=== PATIENT | female | born 1940 | race Caucasian/White ===

== ENCOUNTER → 2017-05-13 | Day surgery (SDC) | payer OTHER ==
[~2017-05-13] VITALS: Ht 157.5 cm; Wt 102.5 kg
[~2017-05-13] MED LIST: AMARYL2 MG PO; AMBIEN 5 MG TABL5 MG PO; ASPIR 8181 MG PO; ATORVASTATIN CA40 MG PO; CARDIZEM CD240 MG PO; CARDURA4 MG PO; CARTIA XT240 M1 PO; CARVEDILOL25 MG PO; CELEBREX 200 M200 M1 PO; CLONAZEPAM 0.50.5 M1 PO; COUMADIN 3 MG TA3 M1 PO; COUMADIN6 MG PO; ENOXAPARIN100 MG/11 SUBQ; FISH OIL 1,001000 M2 PO; GLIMEPIRIDE PO; HYDRALAZINE 5050 MG PO; LASIX 40 MG TAB40 M2 PO; LOSARTAN POTAS100 MG PO; METFORMIN HCL850 MG PO; METFORMIN PO; MULTI VITAMIN1 EACH PO; NEURONTIN 300300 M1 PO; OMEPRAZOLE 20 M20 M1 PO; PROAIR HFA8.5 GM INH; REQUIP0.5 MG PO; SINGULAIR 10 MG10 M1 PO; SPIRIVA INH; SYMBICORT160 MCG/4. PO; TYLENOL PM EX-1 EACH PO
[2017-05-13 12:13] LABS: CALCIUM 9.2 mg/dL (8.5-10.1); CREATININE 1.1 mg/dL (0.6-1.0)
[2017-05-13 12:23] LABS: INR 1.1; PROTIME 11.5 Seconds (9.3-11.4)
== END ==
LOC: OR 01:35 → TBA 01:35 → OR 01:36
PROVIDERS: Ophthalmology
DX: J43.9 Emphysema, unspecified (principal); J44.9 Chronic obstructive pulmonary disease, unspecified; Z53.9 Procedure and treatment not carried out, unspecified reason

== ENCOUNTER 2017-05-23 05:29 | Day surgery (SDC) | payer OTHER ==
[~2017-05-23] VITALS: Ht 157.5 cm; Wt 103.9 kg
--- NOTE | ~2017-05-23 | O ---
[facility] [place] [address] OPERATIVE REPORT Name: FELICITY MCGREGOR Room #: DEP [facility]#: [id number] Admission: 05/23/17 Attend Phys: Nahum Slater MD Discharge: 05/23/17 Date of : 42 Report #: [id number] THIS REPORT FOR: //name// CC: ELADIO Slater SURGEON: Nahum Slater MD [employer] EMPLOYEE: None. PREOPERATIVE DIAGNOSIS: Bilateral upper lid dermatochalasia with superior visual field defect. POSTOPERATIVE DIAGNOSIS: Bilateral upper lid dermatochalasia with superior visual field defect. OPERATION PERFORMED: Bilateral upper lid functional blepharoplasty. ANESTHESIA: Local with IV sedation. COMPLICATIONS: None. INDICATIONS FOR SURGERY: This patient has acquired upper lid dermatochalasia with superior visual field loss both eyes because of excessive upper lid tissues to include skin and fat. Visual field testing demonstrates dense superior visual defects. Retesting with the upper lid elevated shows an improvement in visual field loss of over 30% and in excess of 12 degrees. The current procedures are undertaken in order to improve the patient's visual function. Informed consent was obtained to include but not limited to the loss of vision, bleeding, infection, scarring, failure to improve the problem and need for further surgery. DESCRIPTION OF OPERATION: The patient was taken to the operating room, where 2% Xylocaine with epinephrine mixed with equal parts of 0.75% Marcaine with Wydase was administered transcutaneously to each upper lid. The patient was then prepped and draped in the usual sterile fashion and a skin-marking pen was then utilized to outline an upper lid crease that was symmetrical on each side. Graefe forceps were then used to quantitate the redundant upper lid skin and it was similarly outlined. The incisions were then made with Monica scissors and a skin-muscle flap removed from each side with high-temp cautery. Hemostasis was achieved with the monopolar cautery as it was throughout the case. The orbital septum was then identified and the central and medial fat pads were inspected. The redundant soft tissue was then sculpted with the monopolar cautery. The upper lid crease was then reformed with tightening of the [facility] [address] [place] [address] OPERATIVE REPORT Name: FELICITY MCGREGOR Angie Room #: DEP [facility].#: [id number] Admission: 05/23/17 Attend Phys: Nahum Slater MD Discharge: 05/23/17 Date of : 42 Report #: [id number] pretarsal orbicularis muscle. The upper lid crease was then further reformed with multiple interrupted 6-0 chromic sutures. The skin was then closed with a running 6-0 plain gut suture. The wound was then cleaned and dressed with ophthalmic antibiotic ointment and a nonstick dressing. The patient was transported to the recovery area, where cold compresses were applied, having tolerated the procedure well with no anesthetic or operative complications being noted. By: [id number] Nahum Slater MD /henrry
[2017-05-23 07:28] LABS: PROTIME 10.5 Seconds (9.3-11.4)
[2017-05-23 08:30] VITALS: BP 189/76
== END 2017-05-23 10:15 | disposition home or self-care (01) ==
LOC: OR 05:29 → TBA 05:29 → OR 10:15
PROVIDERS: Ophthalmology
DX: H02.834 Dermatochalasis of left upper eyelid (principal); H02.831 Dermatochalasis of right upper eyelid; H53.462 Homonymous bilateral field defects, left side; H53.461 Homonymous bilateral field defects, right side; I10 Essential (primary) hypertension; E11.9 Type 2 diabetes mellitus without complications; J43.9 Emphysema, unspecified; E78.5 Hyperlipidemia, unspecified; K21.9 Gastro-esophageal reflux disease without esophagitis; Z85.038 Personal history of other malignant neoplasm of large intestine; Z95.2 Presence of prosthetic heart valve; Z95.0 Presence of cardiac pacemaker; Z95.1 Presence of aortocoronary bypass graft; Z98.890 Other specified postprocedural states; Z86.73 Personal history of transient ischemic attack (TIA), and cerebral infarction without residual deficits; Z87.19 Personal history of other diseases of the digestive system; Z96.653 Presence of artificial knee joint, bilateral; Z79.899 Other long term (current) drug therapy; Z79.82 Long term (current) use of aspirin; Z88.6 Allergy status to analgesic agent
CPT/HCPCS: 50010; 50101; 50386; 50398; 51636; 56531; 62110; 62850; 70005